=== PATIENT | male | born 1970 | race Caucasian/White ===

== ENCOUNTER 2018-09-21 09:45 | Emergency (ER) | payer MEDICAID ==
[2018-09-21] MEDS: IBUPROFEN 800 MG TAB PO (10:35)
[2018-09-21] MEDS: ACETAMINOPHEN 500 MG TAB PO (10:35)
== END 2018-09-21 11:45 | disposition home or self-care (01) ==
LOC: FTE 11:45
DX: J06.9 Acute upper respiratory infection, unspecified (principal)
CPT/HCPCS: 71045; 87400; 99284-25